=== PATIENT | female | born 1950 | race Caucasian/White ===

== ENCOUNTER → 2019-01-20 14:54 | Outpatient (REF) | payer MEDICARE, OTHER, SELFPAY | LOC: LAB 14:54 | PROVIDERS: Visit Provider Physician Assistant | DX: L82.1 Other seborrheic keratosis (principal); L91.8 Other hypertrophic disorders of the skin; L02.821 Furuncle of head [any part, except face]; Z87.2 Personal history of diseases of the skin and subcutaneous tissue; Z08 Encounter for follow-up examination after completed treatment for malignant neoplasm; Z85.828 Personal history of other malignant neoplasm of skin | CPT/HCPCS: 87070; 87075; 87077; 87205 ==

== ENCOUNTER 2022-06-07 10:56 | Emergency (ER) | payer MEDICARE, OTHER, SELFPAY ==
[2022-06-07] VITALS (16 sets, daily range): BP systolic 99–130; BP diastolic 52–77; PULSE 66–79; RESP 18–21; TEMP 36.9; O2SAT 94–100; BMI 23.9
[2022-06-07 11:13] LABS: Add Manual Diff / Slide Review NO; Basophils Absolute Auto 100 /uL (0-100); Basophils Percent Auto 0.7 % (0-2); Eosinophils Absolute Auto 0 /uL (0-450); Eosinophils Percent Auto 0.4 % (2-4); Hematocrit 36.8 % (36-46); Hemoglobin 12.6 g/dL (12.0-16.0); Lymphocytes Absolute Auto 2000 /uL (1100-4500); Lymphocytes Percent Auto 24.5 % (25-40); Mean Corpuscular HGB Conc 34.1 % (30-36); Mean Corpuscular Hemoglobin 29.8 PG (26-34); Mean Corpuscular Volume 87.2 fL (80-100); Monocytes Absolute Auto 500 /uL (0-900); Monocytes Percent Auto 5.9 % (3-14); Neutrophils Absolute Auto 5600 /uL (1500-7000); Neutrophils Percent Auto 68.5 % (50-75); Platelet Count 315 X10^3/uL (150-400); Red Blood Cell Count 4.22 X10^6/uL (4.0-5.2); Red Cell Distribution Width 13.2 % (11.6-14.8); White Blood Cell Count 8.2 X10^3/uL (4.5-11.0)
[2022-06-07 11:20] LABS: Alanine Aminotransferase 34 IU/L (<35); Albumin 4.4 g/dL (3.5-5.0); Albumin Globulin Ratio 1.5 (1.0-2.8); Alkaline Phosphatase 72 U/L (38-126); Aspartate Aminotransferase 33 IU/L (14-36); BUN Creatinine Ratio 18.1 (6-22); Bilirubin Total 0.8 mg/dL (0.2-1.3); Blood Urea Nitrogen 19 mg/dL (7-17); Calcium 9.4 mg/dL (8.4-10.2); Carbon Dioxide 21 mmol/L (22-32); Chloride 100 mmol/L (98-107); Estimated Glomerular Filt Rate 56 mL/min (>60); Glucose 139 mg/dL (80-110); HEMOLYSIS < 15 (0-50); Lipase 56 U/L (23-300); Sodium 133 mmol/L (137-145); Total Protein 7.4 g/dL (6.3-8.2)
--- NOTE | 2022-06-07 12:26 | ED_ITS ---
HPI - Abdominal Pain General Chief Complaint: Urogenital-Female Stated Complaint: flank/abd pain Time Seen by Provider: 06/07/22 11:47 Source: patient and EMS Mode of arrival: EMS History of Present Illness HPI narrative: The patient is a 71-year-old female history of hypertension is and kidney stones presenting today with ongoing left-sided pain. It has been there for about 5 days. She was seen evaluated walk-in care 5 days ago she got started on Bactrim for UTI could she is also having frequent urination. She continues to have se dennis pain in her left flank that comes and goes in waves. It has not radiated to her abdomen. This presents like previous kidney stone she has had. She not had fever or chills. She is in quite a bit pain. Patient states that she passed a kidney stone last week and then was still having some left flank pain but does when she went to the walk-in clinic diagnosed with UTI. Related Data Previous Rx's Medication Instructions Recorded hydrocodone 5 mg-acetaminophen 325 1 tab PO Q6H PRN pain #10 tabs 06/07/22 mg tablet Allergies Allergy/AdvReac Type Severity Reaction Status Date / Time metformin Allergy Severe Hypotension Verified 06/07/22 11:08 Penicillins Allergy Severe Swelling Verified 06/07/22 11:08 of Lip/Tongue/Throat bee venom protein (honey bee) Allergy Unknown Verified 06/07/22 11:08 citric acid Allergy Unknown Verified 06/07/22 11:08 Review of Systems Review of Systems Narrative: GENERAL: Denies chills, fatigue, malaise, fever, sweats, travel HEENT: Denies sinus pain, ear pain, sore throat, difficulty swallowing, neck pain RESPIRATORY: Denies dyspnea, cough, wheezing, hemoptysis, sputum. CARDIOVASCULAR: Denies chest pain, palpitations, orthopnea, edema GASTROINTESTINAL: Denies nausea, vomiting, abdominal pain, diarrhea, constipation, melena. : See HPI MUSCULOSKELETAL: Denies weakness, joint pain, or bony pain SKIN: No rash, no erythema, no pruritus NEUROLOGIC: Denies weakness, dizziness, headache, numbness, change in speech, confusion PSYCHIATRIC: No concerning psychosocial issues. 12 point review of systems is negative except for those stated above and HPI Patient History Social History Smoking Status: Never smoker Smoking Status: Never smoker alcohol intake frequency: 0-2 drinks per day Substance Use Type: does not use Exam Initial Vital Signs Initial Vital Signs: Vital Signs Pulse Rate 75 06/07/22 10:55 Pulse Oximetry 100 06/07/22 10:55 GENERAL: Alert pleasant 71-year-old female appears uncomfortable and in no acute distress. HEENT: Head atraumatic,EOMI, pupils reactive, face symmetric, moist mucous membranes CARDIOVASCULAR: Regular rate and rhythm without murmurs, rubs or gallops. RESPIRATORY: Breath sounds equal bilaterally, no wheezes rales or rhonchi. ABDOMEN: Soft, nontender. Normoactive bowel sounds all 4 quadrants. No guarding or rebound. : Severe left flank pain EXTREMITIES: Normal range of motion, no clubbing or edema. Neurovascularly intact NEUROLOGICAL: Alert and oriented x4.Normal gait and speech. SKIN: Warm, dry, no laceration, no petechiae, no rashes or lesions. Course Orders Ordered: ED Orders 06/07/22 11:00 Complete Blood Count AUTO DIFF Stat Comprehensive Metabolic Panel Stat Lipase Stat 06/07/22 12:30 CT kidney ureter bladder (KUB) Stat 06/07/22 13:04 Urine Microscopic Stat Discontinued Medications Ketorolac Tromethamine (Ketorolac 30 Mg/Ml Vial) 15 mg IV NOW ONE Stop: 06/07/22 12:27 Last Admin: 06/07/22 12:49 Dose: 15 mg Documented By: LORENZO Vital Signs Vital signs: Vital Signs - 8 hr 06/07/22 11:00 06/07/22 10:55 06/07/22 10:56 Temperature 98.5 F Pulse Rate 72 75 73 Respiratory Rate 18 Blood Pressure 130/60 Pulse Oximetry 100 100 100 Oxygen Delivery Method Room Air 06/07/22 10:56 06/07/22 11:00 06/07/22 11:00 Temperature Pulse Rate 73 Respiratory Rate 19 Blood Pressure 130/60 112/66 Pulse Oximetry 100 Oxygen Delivery Method 06/07/22 11:30 06/07/22 11:30 06/07/22 12:00 Temperature Pulse Rate 71 Respiratory Rate 20 Blood Pressure 106/57 L 108/59 L Pulse Oximetry 96 Oxygen Delivery Method 06/07/22 12:00 06/07/22 12:30 06/07/22 12:54 Temperature Pulse Rate 75 74 Respiratory Rate 21 20 Blood Pressure 118/56 L Pulse Oximetry 97 Oxygen Delivery Method 06/07/22 12:54 06/07/22 13:00 06/07/22 13:00 Temperature Pulse Rate 71 70 Respiratory Rate Blood Pressure 109/57 L Pulse Oximetry 100 99 Oxygen Delivery Method 06/07/22 13:30 06/07/22 13:30 06/07/22 14:00 Temperature Pulse Rate 69 Respiratory Rate Blood Pressure 99/58 L 108/55 L Pulse Oximetry 97 Oxygen Delivery Method 06/07/22 14:00 06/07/22 14:30 06/07/22 14:30 Temperature Pulse Rate 72 73 Respiratory Rate Blood Pressure 112/58 L Pulse Oximetry 95 94 Oxygen Delivery Method 06/07/22 15:00 06/07/22 15:00 06/07/22 15:30 Temperature Pulse Rate 74 Respiratory Rate Blood Pressure 107/54 L 119/58 L Pulse Oximetry 97 Oxygen Delivery Method 06/07/22 15:30 06/07/22 16:00 06/07/22 16:00 Temperature Pulse Rate 76 79 Respiratory Rate Blood Pressure 108/77 Pulse Oximetry 97 97 Oxygen Delivery Method 06/07/22 16:30 06/07/22 16:30 06/07/22 17:00 Temperature Pulse Rate 72 Respiratory Rate Blood Pressure 113/56 L 101/52 L Pulse Oximetry 97 Oxygen Delivery Method 06/07/22 17:00 Temperature Pulse Rate 66 Respiratory Rate Blood Pressure Pulse Oximetry 96 Oxygen Delivery Method MDM - Abdominal Pain Lab Data Result diagrams: 06/07/22 11:00 06/07/22 11:00 Labs: Lab Results 06/07/22 06/07/22 06/07/22 Range/Units 11:00 11:00 13:04 WBC 8.2 (4.5-11.0) X10^3/uL RBC 4.22 (4.0-5.2) X10^6/uL Hgb 12.6 (12.0-16.0) g/dL Hct 36.8 (36-46) % MCV 87.2 (80-100) fL MCH 29.8 (26-34) PG MCHC 34.1 (30-36) % RDW 13.2 (11.6-14.8) % Plt Count 315 (150-400) X10^3/uL Neut % (Auto) 68.5 (50-75) % Lymph % (Auto) 24.5 L (25-40) % [place] % (Auto) 5.9 (3-14) % Eos % (Auto) 0.4 L (2-4) % Baso % (Auto) 0.7 (0-2) % Neut # (Auto) 5600 (2299-0313) /uL Lymph # (Auto) 2000 (6974-4935) /uL [place] # (Auto) 500 (0-900) /uL Eos # (Auto) 0 (0-450) /uL Baso # (Auto) 100 (0-100) /uL Sodium 133 L (137-145) mmol/L Potassium 4.0 (3.4-5.1) mmol/L Chloride 100 (98-107) mmol/L Carbon Dioxide 21 L (22-32) mmol/L BUN 19 H (7-17) mg/dL Creatinine 1.05 H (0.52-1.04) mg/dL Estimated GFR 56 L (>60) mL/min BUN/Creatinine Ratio 18.1 (6-22) Glucose 139 H (80-110) mg/dL Calcium 9.4 (8.4-10.2) mg/dL Total Bilirubin 0.8 (0.2-1.3) mg/dL AST 33 (14-36) IU/L ALT 34 (<35) IU/L Alkaline Phosphatase 72 (38-126) U/L Total Protein 7.4 (6.3-8.2) g/dL Albumin 4.4 (3.5-5.0) g/dL Globulin 3.0 (1.7-4.1) g/dL Albumin/Globulin Ratio 1.5 (1.0-2.8) Lipase 56 (23-300) U/L Urine RBC None seen (0-5/HPF) Urine WBC 1-5/hpf (0-5/HPF) Ur Squamous Epith Cells 5-10 /hpf H (0-5/HPF) Urine Bacteria None seen (None) Ur Culture Indicated? Cult not indicated Point of care testing: Urine Dip Bedside Urine Glucose Negative Bedside Urine Bilirubin - Negative Bedside Urine Ketone + 15 Urine Specific [place] 1.010 Bedside Urine Occult Blood - Negative Bedside Urine pH 8.0 Bedside Urine Protein - Negative Bedside Urine Urobilinogen - Negative Bedside Urine Nitrite - Negative Bedside Urine Leukocytes + [address] scan - abdomen/pelvis: Radiologist's Impression: CT Scan Report Signed Patient: Nichol Kidd MR#: [id number] : 1950 Acct:[id number] Age/Sex: 71 / F Date of Service: 06/07/22 Loc: ED Accession Number: [id number] ?? Procedure: CT kidney ureter bladder (KUB) Ordering Provider: Anna Jacobsen D.O. PROCEDURE:? CT KIDNEY URETER BLADDER (KUB) ? INDICATIONS:? left flank ? TECHNIQUE:? Axial sections were acquired from the lung bases to the pubic symphysis.? Coronal and sagittal reformats were performed.? For radiation dose reduction, the following was used: ?automated exposure control, adjustment of mA and/or kV according to patient size.? ? COMPARISON:? None. ? FINDINGS:? Image quality:? Excellent.? ? Lung bases:? Unremarkable.? ? Heart:? No significant findings. ? URINARY: Right Kidney: ? No stones or hydronephrosis.? Right Ureter:? No hydroureter.? ? Left Kidney: ? No stones or hydronephrosis. Left Ureter:? No hydroureter.? ? Bladder:? Normal wall thickness. No stones. ? ? ? ABDOMEN: Liver:? Unremarkable.? ? Gallbladder:? Surgically absent? ? Biliary ducts:? Unremarkable.? ? Pancreas:? Unremarkable.? ? Spleen:? Unremarkable.? ? Adrenal Glands:? Unremarkable.? ? ? Stomach and Bowel:? Stomach, small bowel loops, and colon are unremarkable.? There are scattered colonic diverticular outpouchings predominantly within the right hemicolon.? No mucosal thickening or pericolonic fat stranding.? Peritoneum:? No abnormal intraperitoneal fluid.? No free air.? ? Ventral Wall: ? No hernia.? Abdominal Nodes:? No enlarged retroperitoneal or mesenteric lymph nodes.? Vessels:? Aorta and inferior vena cava are normal in size.? There are scattered atheromatous calcifications throughout the aorta and iliac arteries bilaterally. ? PELVIS: Pelvic Organs:? Unremarkable.? ? Pelvic Nodes: Unremarkable. Miscellaneous: No inguinal hernias are seen. ? ? ? Bones:? Unremarkable. ? IMPRESSION:? ? 1. No acute intra-abdominal findings.? Colonic diverticulosis.? No acute div erticulitis. ? 2. No nephrolithiasis, hydronephrosis, hydroureter, or ureterolithiasis.? No bladder calculi.? Dictated by: Yris Medrano M.D. on 06/07/2022 at 12:53 ?? [facility] Narrative Medical decision making narrative: Patient's blood work and CT are overall reassuring. She is not hypertensive or hypotensive no concern for aneurysm or dissection at this time pain is been ongoing for more than a week. It does not really seem to be improving. She denies any injury. Had attempted to get walk-in clinic records. Urine today is clear with no sign of infection hesitant to change up antibiotics at this time without clear evidence. Currently there is no sign of sepsis. Discharge Plan Departure Patient Disposition: Home Clinical Impression: UTI (urinary tract infection) Qualifiers: Urinary tract infection type: acute pyelonephritis Qualified Code(s): N10 - A cute pyelonephritis Instructions: DI for Kidney Infection Activity Restrictions/Additional Instructions: *You have been diagnosed with probable kidney infection *What to do: Blood is overall reassuring. Urine overall appears better. I tried to get records from the clinic but was unsuccessful. At this time I recommend continuing her antibiotics. Try taking pain medication. No evidence of kidney stone at this time. *Continue to take medications as directed Hydrocodone half a tablet every 6 hours if needed for severe pain may upgrade to full tablet -->SENT TO [facility] [place] *Follow up with your primary care provider in 2-3 days or call [phone] *Return to ER if you should have increasing pain fever persistent nausea or vomiting [or] any new, worsening or concerning symptoms Prescriptions: New hydrocodone-acetaminophen 5-325 mg tablet 1 tab PO Q6H PRN (Reason: pain) Qty: 10 0RF Visit Report Forms: Patient Portal/API
--- NOTE | 2022-06-07 12:30 | DI.CT.S_ITS ---
PROCEDURE: CT KIDNEY URETER BLADDER (KUB) INDICATIONS: left flank TECHNIQUE: Axial sections were acquired from the lung bases to the pubic symphysis. Coronal and sagittal reformats were performed. For radiation dose reduction, the following was used: automated exposure control, adjustment of mA and/or kV according to patient size. COMPARISON: None. FINDINGS: Image quality: Excellent. Lung bases: Unremarkable. Heart: No significant findings. URINARY: Right Kidney: No stones or hydronephrosis. Right Ureter: No hydroureter. Left Kidney: No stones or hydronephrosis. Left Ureter: No hydroureter. Bladder: Normal wall thickness. No stones. ABDOMEN: Liver: Unremarkable. Gallbladder: Surgically absent Biliary ducts: Unremarkable. Pancreas: Unremarkable. Spleen: Unremarkable. Adrenal Glands: Unremarkable. Stomach and Bowel: Stomach, small bowel loops, and colon are unremarkable. There are scattered colonic diverticular outpouchings predominantly within the right hemicolon. No mucosal thickening or pericolonic fat stranding. Peritoneum: No abnormal intraperitoneal fluid. No free air. Ventral Wall: No hernia. Abdominal Nodes: No enlarged retroperitoneal or mesenteric lymph nodes. Vessels: Aorta and inferior vena cava are normal in size. There are scattered atheromatous calcifications throughout the aorta and iliac arteries bilaterally. PELVIS: Pelvic Organs: Unremarkable. Pelvic Nodes: Unremarkable. Miscellaneous: No inguinal hernias are seen. Bones: Unremarkable. IMPRESSION: 1. No acute intra-abdominal findings. Colonic diverticulosis. No acute diverticulitis. 2. No nephrolithiasis, hydronephrosis, hydroureter, or ureterolithiasis. No bladder calculi. Dictated by: Yris Medrano M.D. on 06/07/2022 at 12:53 Approved by: Yris Medrano M.D. on 06/07/2022 at 12:57
[2022-06-07] MEDS: KETOROLAC 30 MG/ML VIAL 15 MG IV (12:49)
[2022-06-07 13:34] LABS: RBC Urine None Seen (0-5/HPF)
[2022-06-07 13:35] LABS: Bacteria Urine None Seen; Culture Indicated Urine Cult Not Indicated; Squamous Epithelial Cell Urine 5-10 /HPF (0-5/HPF); WBC Urine 1-5/HPF (0-5/HPF)
== END 2022-06-07 17:35 | disposition home or self-care (01) ==
PROVIDERS: Emergency Provider Emergency Medicine
DX: N10 Acute pyelonephritis (principal)
CPT/HCPCS: 36415; 74176; 80053; 81003; 81015; 83690; 85025; 96374; 99284; J1885

== ENCOUNTER 2022-10-06 10:37 | Day surgery (SDC) | payer MEDICARE, OTHER, SELFPAY ==
[2022-10-06] VITALS (8 sets, daily range): BP systolic 85–120; BP diastolic 43–68; PULSE 77–91; RESP 12–16; TEMP 36.5–36.7; O2SAT 98–100; BMI 23.5
--- NOTE | 2022-10-06 | PATH_ITS ---
[facility] Accession Number: [id number] No. of containers..02 Tissue . 01 Material submitted: . PART A: colon - LEFT COLON RANDOM BIOPSIES PART B: rectum - RECTAL COLON POLYP . 01 Clinical history: . A: H/O LEFT COLON COLITIS . 01 Diagnosis: A. Random Left Colon, Biopsies: Colonic mucosa with no significant diagnostic abnormality. Negative for active inflammation, granulomas, dysplasia, and malignancy. . B. Rectal Polyp, Biopsy: Hyperplastic polyp. MRV 10/08/2022 1543 Local . 01 Electronically signed: . Tripp Ibarra MD, PhD, Pathologist NPI- [id number] . 01 Gross description: . Part A: LEFT COLON RANDOM BIOPSIES: Received in formalin are 3 fragment(s) of tristan, soft tissue measuring 0.3 x 0.2 x 0.1 cm to 0.2 x 0.1 x 0.1 cm submitted entirely in 1 cassette(s) Part B: RECTAL COLON POLYP: Received in formalin is 1 fragment(s) of tristan, soft tissue measuring 0.8 x 0.3 x 0.3 cm submitted entirely in 1 cassette(s) /CPE 10/07/2022 0932 Local . 01 Pathologist provided ICD-10: K51.90, K62.1 . 01 CPT . 818047, 774377 Specimen Comment: A courtesy copy of this report has been sent to [phone] Performed at: 01 [facility] [address] [place] [address] [id number] MD William Milton MD Phone: [phone]
[2022-10-06] MEDS: SODIUM CHLORIDE 0.9% 1,000 ML 84 ML IV (11:40)
[2022-10-06 11:51] LABS: COVID19 -Nasal RAPID Negative (Negative)
--- NOTE | 2022-10-06 13:05 | PM.HP.1 ---
History of Present Illness History of Present Illness Chief complaint: Colonoscopy Narrative: History of left-sided colitis and a sessile serrated adenoma Patient History Family & Social History Social History: household members family Tobacco & Substance use: Smoking Status Never smoker alcohol intake never Substance Use Type does not use Meds Home Medications and Allergies Home Medications Medication Instructions Recorded Confirmed Type dulaglutide 1.5 mg/0.5 mL 1.5 mg SUBCUT QWEEK 10/06/22 10/06/22 History subcutaneous pen injector (Trulicity) insulin glargine 100 unit/mL 11 unit SUBCUT DAILY 10/06/22 10/06/22 History subcutaneous cartridge lisinopril 20 1 tab PO DAILY 10/06/22 10/06/22 History mg-hydrochlorothiazide 25 mg tablet omeprazole 10 mg capsule,delayed 10 mg PO DAILY 10/06/22 10/06/22 History release Allergies Allergy/AdvReac Type Severity Reaction Status Date / Time bee venom protein (honey bee) Allergy Swelling Verified 10/06/22 11:20 of Lip/Tongue/Throat [place] And Derivatives Allergy Hives Verified 10/06/22 11:20 Penicillins Allergy Swelling Verified 10/06/22 11:20 of Lip/Tongue/Throat metformin AdvReac Hypotension Verified 10/06/22 11:20 Exam Vital Signs (past 8 hours): - 10/06/22 11:23 Temperature 97.7 F Pulse Rate 88 Respiratory Rate 16 Blood Pressure 120/68 Pulse Oximetry 100 Oxygen Delivery Method Room Air Oxygen Flow Rate 0 Oxygen Delivery Method Room Air Oxygen Flow Rate 0 Narrative Exam Narrative: Oropharynx free of lesions Chest clear to auscultation percussion Cardiac exam reveals no S3 or murmur Objective Labs Labs: Laboratory Results - last 24 hr 10/06/22 11:16 SARS-CoV-2 (PCR) Negative Assessment & Plan Assessment & Plan narrative: History of left-sided colitis and history of a sessile serrated adenoma need for follow-up colonoscopy. Risks, benefits, alternatives have been explained. Time Spent With Patient Critical Care time: I spent a total of [] minutes of critical care time on this patient's care today; this time is exclusive of procedural time.
--- NOTE | 2022-10-06 13:06 | PM.OP.COLON ---
Operative Date/Time/Diagnoses Date of procedure: 10/06/22 Pre-op diagnosis: See indication and findings Procedure & Clinicians Study performed: Colonoscopy Indications: Left-sided colitis and history of sessile serrated adenoma Surgeon: Jamil Desai Procedure Notes Procedure in detail: After informed consent was obtained the patient was placed in left lateral decubitus position. The video colonoscope was introduced the rectum slowly advanced cecum. Preparation was good. On slow withdrawal mucosa was carefully examined. The scope was removed. The patient tolerated procedure well. Blood loss none Complications none Sedation propofol Findings 1. Quite tortuous colon but eventually cecum was reached 2. 1 cm somewhat irregular sessile polyp in the rectum cold snared and removed completely 3. Otherwise negative colonoscopy to cecum with the exception of some mild hypervascularity. Biopsies were taken in the left colon to document whether or not any colitis was present Will be in touch regarding his biopsies but should have follow-up colonoscopy most likely in 5 years. All
== END 2022-10-06 14:36 | disposition home or self-care (01) ==
PROVIDERS: PCP Physician Assistant; Referring Provider Internal Medicine Gastroenterology; Visit Provider Internal Medicine Gastroenterology
PROC: 0DJD8ZZ Inspection of Lower Intestinal Tract, Via Natural or Artificial Opening Endoscopic (ICD-10-PCS; CPT 45378; principal; 2022-10-06 12:30)
DX: Z12.11 Encounter for screening for malignant neoplasm of colon (principal); Z86.010 Personal history of colon polyps; Z87.19 Personal history of other diseases of the digestive system; E11.9 Type 2 diabetes mellitus without complications; I10 Essential (primary) hypertension; Z79.4 Long term (current) use of insulin; Z79.84 Long term (current) use of oral hypoglycemic drugs; Z20.822 Contact with and (suspected) exposure to COVID-19; K62.1 Rectal polyp
CPT/HCPCS: 45385; 45380; 87635; C9803; J2704

== ENCOUNTER → 2023-01-14 12:16 | Outpatient (CLI) | payer MEDICARE, OTHER, SELFPAY ==
--- NOTE | 2023-01-14 12:19 | DI.RAD.S_ITS ---
PROCEDURE: XR KUB INDICATIONS: History of kidney stone TECHNIQUE: One view of the abdomen acquired. COMPARISON: [facility], CT, CT KIDNEY URETER BLADDER (KUB), 06/07/2022, 12:31. FINDINGS: Surgical changes and devices: None. Bowel: Bowel gas pattern is normal except for moderate colonic obstipation, right slightly greater than left. Soft tissues: No suspicious abdominal calcifications. Visualized solid organ contours appear normal in size. Five separate left-sided pelvic phleboliths are again noted, also seen on CT scanning 06/07/22. Bones: No suspicious bony lesions. IMPRESSION: No urinary tract stone is found. Five separate pelvic phleboliths are noted over the left hemipelvis, previously present on CT scanning. Moderate colonic obstipation. Dictated by: Missael Powell M.D. on 01/14/2023 at 13:42 Approved by: Missael Powell M.D. on 01/14/2023 at 13:45
== END ==
PROVIDERS: Referring Provider Urology; Visit Provider Urology
DX: K59.00 Constipation, unspecified (principal); Z87.442 Personal history of urinary calculi
CPT/HCPCS: 74018

== ENCOUNTER → 2023-07-12 11:47 | Outpatient (CLI) | payer MEDICARE, OTHER, SELFPAY ==
--- NOTE | 2023-07-12 11:50 | DI.RAD.S_ITS ---
PROCEDURE: XR KUB INDICATIONS: history of kidney stones TECHNIQUE: One view of the abdomen acquired. COMPARISON: [facility], CR, XR KUB, 01/14/2023, 12:18. FINDINGS: Surgical changes and devices: None. Bowel: Bowel gas pattern is normal. Moderate amount of stool scattered throughout the colon. Soft tissues: No suspicious abdominal calcifications. Visualized solid organ contours appear normal in size. Bones: No suspicious bony lesions. IMPRESSION: No renal stone identified by plain film radiograph. Dictated by: Maribel Sears MD, PhD on 07/12/2023 at 13:23 Approved by: Maribel Sears MD, PhD on 07/12/2023 at 13:37
== END ==
PROVIDERS: Referring Provider Urology; Visit Provider Urology
DX: Z09 Encounter for follow-up examination after completed treatment for conditions other than malignant neoplasm (principal); Z87.442 Personal history of urinary calculi
CPT/HCPCS: 74018

== ENCOUNTER → 2024-01-10 11:53 | Outpatient (CLI) | payer MEDICARE, OTHER, SELFPAY ==
--- NOTE | 2024-01-10 11:56 | DI.RAD.S_ITS ---
PROCEDURE: XR KUB INDICATIONS: History of kidney stones TECHNIQUE: One view of the abdomen acquired. COMPARISON: [facility], CR, XR KUB, 07/12/2023, 11:52. FINDINGS: Surgical changes and devices: Right upper quadrant surgical clips. Bowel: Bowel gas pattern is normal. Soft tissues: No suspicious abdominal calcifications. Visualized solid organ contours appear normal in size. Bones: No suspicious bony lesions. IMPRESSION: No renal calculus identified radiographically. Approved by: Rei Gallardo M.D. on 01/10/2024 at 15:10
== END ==
PROVIDERS: Referring Provider Urology; Visit Provider Urology
DX: Z09 Encounter for follow-up examination after completed treatment for conditions other than malignant neoplasm (principal); Z87.442 Personal history of urinary calculi
CPT/HCPCS: 74018

== ENCOUNTER → 2024-01-17 13:39 | Outpatient (CLI) | payer MEDICARE, OTHER, SELFPAY | PROVIDERS: Visit Provider Urology | DX: K59.03 Drug induced constipation (principal); Z87.440 Personal history of urinary (tract) infections; Z87.442 Personal history of urinary calculi | CPT/HCPCS: 51798; 81002; 87077; 87086; 87186; 99213 ==

== ENCOUNTER → 2024-02-20 17:14 | Outpatient (CLI) | payer MEDICARE, OTHER, SELFPAY ==
[2024-02-20 17:45] LABS: Appearance Urine UA SL CLOUDY; Bilirubin Urine UA NEGATIVE (NEGATIVE); Color Urine UA YELLOW; Glucose Urine UA NEGATIVE (Negative); Ketones Urine UA NEGATIVE (NEGATIVE); Leukocyte Esterase Urine UA 2+ (NEGATIVE); Nitrite Urine UA POSITIVE (Negative); Occult Blood Urine UA NEGATIVE (Negative); Protein Urine UA NEGATIVE (Negative); Urobilinogen Urine UA 0.2 E.U./dL (0.2)
[2024-02-20 17:46] LABS: pH Urine UA 7.5 (4.5-8.0)
[2024-02-20 17:52] LABS: Bacteria Urine Many (>30); Culture Indicated Urine Specimen Cultured; RBC Urine 0-1/HPF (0-5/HPF); Squamous Epithelial Cell Urine >30 /HPF (0-5/HPF); Urine Volume 10mL (spun); WBC Urine 10-30/HPF (0-5/HPF)
== END ==
PROVIDERS: Referring Provider Urology; Visit Provider Urology
DX: Z87.440 Personal history of urinary (tract) infections (principal)
CPT/HCPCS: 81001; 87077; 87086; 87186

== ENCOUNTER → 2024-03-26 17:20 | Outpatient (CLI) | payer MEDICARE, OTHER, SELFPAY ==
[2024-03-26 18:19] LABS: Appearance Urine UA SL CLOUDY; Bilirubin Urine UA NEGATIVE (NEGATIVE); Color Urine UA YELLOW; Glucose Urine UA NEGATIVE (Negative); Ketones Urine UA NEGATIVE (NEGATIVE); Leukocyte Esterase Urine UA TRACE (NEGATIVE); Nitrite Urine UA POSITIVE (Negative); Occult Blood Urine UA NEGATIVE (Negative); Protein Urine UA NEGATIVE (Negative); Urobilinogen Urine UA 0.2 E.U./dL (0.2)
[2024-03-26 18:34] LABS: Bacteria Urine Many (>30); RBC Urine None Seen (0-5/HPF); Squamous Epithelial Cell Urine 5-10 /HPF (0-5/HPF); Urine Volume 10mL (spun); WBC Urine 5-10/HPF (0-5/HPF)
[2024-03-26 18:35] LABS: Culture Indicated Urine Specimen Cultured; Renal Epithelial Cells Urine 1-5/HPF (0-1/HPF)
== END ==
PROVIDERS: Referring Provider Urology; Visit Provider Urology
DX: Z87.440 Personal history of urinary (tract) infections (principal)
CPT/HCPCS: 81001; 87077; 87086